=== PATIENT | female | born 1995 | race American Indian/Alaskan Native ===

== ENCOUNTER 2017-12-25 15:40 | Emergency (ER) | payer SELFPAY ==
[2017-12-25 16:02] VITALS: BP 114/65
--- NOTE | 2017-12-25 17:05 | Emergency Department Report ---
HPI - General Chief Complaint: Skin/Abscess/Foreign Body Time Seen by Provider: 12/25/17 16:59 - HPI HPI: 22 yo female presents with cough, sore throat and nipple piercing infected. Mild symptoms. No fever. She has mild edema to left nipple. She has some greenish discharge. ED Past Medical Hx - Past Medical History Previous Medical History?: No - Surgical History Past Surgical History?: No - Social History Smoking Status: Never Smoker Substance Use Type: None - Medications Home Medications: Home Medications Medication Instructions Recorded Confirmed Last Taken Type Ciprofloxacin HCl [Cipro] 500 mg PO BID #14 tablet 12/09/13 Unknown Rx Ibuprofen [Motrin] 800 mg PO TID PRN #15 tablet 12/09/13 Unknown Rx Phenazopyridine [Pyridium] 200 mg PO TID #6 tablet 12/09/13 Unknown Rx Vit,Calc78/Iron/Folic 12/09/13 12/09/13 12/08/13 History [Prenatabs FA Tablet] 1 Cephalexin [Keflex] 500 mg PO Q6HR 10 Days #40 capsule 12/25/17 Unknown Rx Sulfamethoxazole/Trimethoprim 1 each PO BID 10 Days #20 tablet 12/25/17 Unknown Rx [Bactrim DS TAB] ED Review of Systems ROS: Stated complaint: FEVER/SORE THROAT/INFECTED PIERCING Other details as noted in HPI Constitutional: denies: chills, fever, malaise ENT: throat pain. denies: ear pain Respiratory: cough Cardiovascular: denies: chest pain Gastrointestinal: denies: abdominal pain Physical Exam - Physical Exam Vital Signs: Vital Signs 12/25/17 16:00 Temperature 98.9 F Pulse Rate 95 H Respiratory 18 Rate Blood Pressure 114/65 O2 Sat by Pulse 100 Oximetry Physical Exam: General: Well-appearing, no acute distress HEENT: Normocephalic atraumatic pupils equal round and reactive to light anicteric sclera Nose: no rhinorrhea Oropharynx: Clear mucous membranes no lesions Neck: supple, no meningismus Left Breast: mild edema surrounding nipple piercing, no discharge Extremities: No cyanosis no clubbing no edema Neuro: Moves all extremities 4, no gross deficits Psychiatric: Alert and oriented 4 normal aspect normal judgment normal inside ED Course Vital Signs 12/25/17 16:00 Temperature 98.9 F Pulse Rate 95 H Respiratory 18 Rate Blood Pressure 114/65 O2 Sat by Pulse 100 Oximetry ED Medical Decision Making - Medical Decision Making URI, mild infection after nipple piercing rx: keflex, bactrim Critical care attestation.: If time is entered above; I have spent that time in minutes in the direct care of this critically ill patient, excluding procedure time. ED Disposition Clinical Impression: Pierced nipple infection, URI (upper respiratory infection) Disposition: TO HOME OR SELFCARE Is pt being admited?: No Does the pt Need Aspirin: No Condition: Stable Instructions: Cellulitis (ED) Prescriptions: Cephalexin [Keflex] 500 mg PO Q6HR 10 Days #40 capsule Sulfamethoxazole/Trimethoprim [Bactrim DS TAB] 1 each PO BID 10 Days #20 tablet
== END 2017-12-25 17:32 | disposition home or self-care (01) ==
LOC: ED 15:40
DX: J06.9 Acute upper respiratory infection, unspecified (principal); N61.0 Mastitis without abscess
CPT/HCPCS: 99282